=== PATIENT | male | born 1975 | race African-American/Black ===

== ENCOUNTER 2019-06-24 19:43 | Emergency (ER) | payer MEDICARE, MEDICAID ==
[2019-06-24] MEDS: LORAZEPAM 1 MG TAB PO (20:25)
== END 2019-06-25 09:49 | disposition home or self-care (01) ==
LOC: E/R 19:43
DX: F41.9 Anxiety disorder, unspecified (principal); F15.10 Other stimulant abuse, uncomplicated
CPT/HCPCS: 93005; 99283-25